=== PATIENT | female | born 1965 | race Caucasian/White ===

== ENCOUNTER → 2016-12-14 | Outpatient (CLI) | payer OTHER | LOC: KOH-I 11:18 | DX: R10.12 Left upper quadrant pain (principal); N83.9 Noninflammatory disorder of ovary, fallopian tube and broad ligament, unspecified | CPT/HCPCS: 74176 ==

== ENCOUNTER → 2016-12-21 | Outpatient (CLI) | payer OTHER | LOC: KOH-I 13:26 | DX: N83.8 Other noninflammatory disorders of ovary, fallopian tube and broad ligament (principal); R93.8 Abnormal findings on diagnostic imaging of other specified body structures; N83.201 Unspecified ovarian cyst, right side | CPT/HCPCS: 76856 ==

== ENCOUNTER 2021-10-09 06:34 | Emergency (ER) | payer OTHER | END 2021-10-09 07:30 | disposition home or self-care (01) | LOC: ER1 06:34 | DX: R04.0 Epistaxis (principal) | CPT/HCPCS: 99283 ==

== ENCOUNTER 2021-10-11 09:50 | Emergency (ER) | payer OTHER ==
[2021-10-11 10:28] LABS: HEMOGLOBIN 12.1 gm/dl (12.3-15.3); RED BLOOD COUNT 3.9 M/UL (4.00-5.10); WHITE BLOOD COUNT 7.6 K/UL (4.5-11.0)
[2021-10-11] MEDS ORDERED: AMOX TR-K CLV1 EAC4 PO (11:32)
== END 2021-10-11 12:52 | disposition home or self-care (01) ==
LOC: ER1 09:50
PROVIDERS: Emergency Medicine
DX: R04.0 Epistaxis (principal); H92.22 Otorrhagia, left ear; R74.01 Elevation of levels of liver transaminase levels
CPT/HCPCS: 30903; 80053; 85025; 85610; 85730; 93005; 99284; J7030